=== PATIENT | female | born 1975 | race American Indian/Alaskan Native ===

== ENCOUNTER 2019-09-30 20:42 | Emergency (ER) | payer BC, MEDICAID ==
[2019-09-30 21:24] VITALS: BP 102/57
[2019-09-30] MEDS ORDERED: ACETAMINOPHEN 500 MG TAB PO ONE (21:24)
--- NOTE | 2019-09-30 21:53 | XRay Report ---
CHEST 2 VIEWS INDICATION / CLINICAL INFORMATION: Shortness of breath and cough for 2 days. COMPARISON: None available. FINDINGS: SUPPORT DEVICES: None. HEART / MEDIASTINUM: The heart size and pulmonary vasculature are normal. LUNGS / PLEURA: There is mild patchy parenchymal disease in the right lower lung medially on the PA v iew, predominantly in the middle lobe on the lateral view. There may be minimal subsegmental parenchy mal disease in the left lower lung. No pleural effusion. No pneumothorax. ADDITIONAL FINDINGS: No significant additional findings. IMPRESSION: Mild patchy pneumonia, predominantly in the right middle lobe. The appearance is nonspeci fic and could be related to bacterial pneumonia. Atypical causes of pneumonia, including viral pneumo clara, could have this appearance. Signer Name: Moses Ansari MD Signed: 09/30/2019 9:49 PM Workstation Name: [id number]
[2019-10-01] MEDS ORDERED: cefTRIAXone/NS 1 GM/50 ML 1 GM/50 ML BAG IV ONE (00:08)
[2019-10-01] MEDS ORDERED: AZITHROMYCIN 250 MG TAB PO ONE (00:08)
[2019-10-01 00:28] LABS: Basophils % (Auto) 0.2 % (0.0-1.8); Eosinophils % (Auto) 0.1 % (0.0-4.3); Hematocrit 34.2 % (30.3-42.9); Hemoglobin 11.2 gm/dl (10.1-14.3); Lymphocytes # (Auto) 1.1 K/mm3 (1.2-5.4); Lymphocytes % (Auto) 20.5 % (13.4-35.0); Mean Corpuscular HGB Conc 33 % (30-34); Mean Corpuscular Volume 79 fl (79-97); Monocytes # (Auto) 0.5 K/mm3 (0.0-0.8); Monocytes % (Auto) 8.8 % (0.0-7.3); Platelet Count 194 K/mm3 (140-440); Red Blood Count 4.35 M/mm3 (3.65-5.03); Red Cell Distribution Width 17.7 % (13.2-15.2)
[2019-10-01 00:45] LABS: Alanine Aminotransferase 7 units/L (7-56); BUN/Creatinine Ratio 8; Blood Urea Nitrogen 8 mg/dL (7-17)
[2019-10-01 01:16] LABS: Albumin 4.1 g/dL (3.9-5); Calcium 9.1 mg/dL (8.4-10.2)
--- NOTE | 2019-10-01 02:32 | Emergency Department Report ---
- General Chief Complaint: Dyspnea/Respdistress Stated Complaint: SOB Source: patient Mode of arrival: Ambulatory Limitations: No Limitations - History of Present Illness Initial Comments: Patient is a 44-year-old -[place] female with no past medical history who presents to the ED with complaint of acute onset persistent nasal and sinus congestion, frontal sinus pressure, persistent dry cough for the last 1 week, worse in the last 2 days with intermittent fever of up to 102 F, diffuse body aches and pains. Patient states that she has been taking [id number] medications with no relief. Patient states that prior to arrival in the ED her fever was higher and that her symptoms have worsened especially cough and shortness of breath which have been dry with no phlegm. Patient denies di zziness, syncope, chest pain, abdominal pain, nausea, vomiting, diarrhea, palpitations, dysuria, urinary frequency and urgency, sore throat, back pain, vaginal bleeding or vaginal discharge. Patient states that no one else at home is had similar symptoms. MD Complaint: fever, cough, rhinorrhea, nasal congestion, sinus pain -: Sudden, week(s) (1) Severity: severe Severity scale (0 -10): 7 Quality: sharp, aching Consistency: constant Improves With: nothing Worsens With: nothing Associated Symptoms: denies other symptoms, fever, chills, myalgias, headache, rhinorrhea, nasal congestion, cough, shortness of breath. denies: sore throat, stiff neck, chest pain, abdominal pain, nausea, vomiting, diarrhea, dysuria, rash, right sweats, weight loss, epistaxis, ear pain Treatments Prior to Arrival: none - Related Data Previous Rx's Medication Instructions Recorded Last Taken Type Acetaminophen [Tylenol] 500 mg PO Q6HR PRN #30 tablet 10/01/19 Unknown Rx Albuterol Sulfate [Proventil Hfa] 1 - 2 puff IH Q6H PRN #1 inh 10/01/19 Unknown Rx Benzonatate [Tessalon Perles] 100 mg PO Q8HR #30 capsule 10/01/19 Unknown Rx Cetirizine HCl [Zyrtec 10mg tab] 10 mg PO DAILY #30 tablet 10/01/19 Unknown Rx levoFLOXacin [Levaquin] 750 mg PO QDAY #7 tablet 10/01/19 Unknown Rx methylPREDNISolone [Medrol 4MG 4 mg PO DAILY #21 tab.ds.pk 10/01/19 Unknown Rx DOSEPAK (21 tabs)] Allergies Allergy/AdvReac Type Severity Reaction Status Date / Time No Known Allergies Allergy Unverified 09/30/19 21:19 ED Review of Systems ROS: Stated complaint: SOB Other details as noted in HPI Constitutional: chills, fever, malaise Eyes: denies: eye pain, eye discharge, vision change ENT: congestion. denies: ear pain, throat pain Respiratory: cough, shortness of breath. denies: wheezing Cardiovascular: denies: chest pain, palpitations, edema, syncope Endocrine: no symptoms reported Gastrointestinal: denies: abdominal pain, nausea, vomiting, diarrhea, hem atemesis, hematochezia Genitourinary: denies: urgency, dysuria, discharge Musculoskeletal: denies: back pain, joint swelling, arthralgia Skin: denies: rash, lesions Neurological: headache. denies: weakness, paresthesias Psychiatric: denies: anxiety, depression Hematological/Lymphatic: denies: easy bleeding, easy bruising ED Past Medical Hx - Past Medical History Previous Medical History?: No - Surgical History Past Surgical History?: Yes Additional Surgical History: Tummy tuck and breast lift - Social History Smoking Status: Never Smoker Substance Use Type: None - Medications Home Medications: Home Medications Medication Instructions Recorded Confirmed Last Taken Type Acetaminophen [Tylenol] 500 mg PO Q6HR PRN #30 tablet 10/01/19 Unknown Rx Albuterol Sulfate [Proventil Hfa] 1 - 2 puff IH Q6H PRN #1 inh 10/01/19 Unknown Rx Benzonatate [Tessalon Perles] 100 mg PO Q8HR #30 capsule 10/01/19 Unknown Rx Cetirizine HCl [Zyrtec 10mg tab] 10 mg PO DAILY #30 tablet 10/01/19 Unknown Rx levoFLOXacin [Levaquin] 750 mg PO QDAY #7 tablet 10/01/19 Unknown Rx methylPREDNISolone [Medrol 4MG 4 mg PO DAILY #21 tab.ds.pk 10/01/19 Unknown Rx DOSEPAK (21 tabs)] ED Physical Exam - General Limitations: No Limitations General appearance: alert, in no apparent distress - Head Head exam: Present: atraumatic, normocephalic, normal inspection - Eye Eye exam: Present: normal appearance, PERRL, EOMI Pupils: Present: normal accommodation - ENT ENT exam: Present: normal orophraynx, mucous membranes moist, TM's normal bilaterally, normal external ear exam, other (Grossly congested nasal passages) - Neck Neck exam: Present: normal inspection, full ROM. Absent: tenderness - Respiratory Respiratory exam: Present: normal lung sounds bilaterally. Absent: respiratory distress, wheezes, rales, rhonchi, chest wall tenderness, accessory muscle use, decreased breath sounds, prolonged expiratory - Cardiovascular Cardiovascular Exam: Present: regular rate, normal rhythm, normal heart sounds. Absent: systolic murmur, diastolic murmur, rubs, gallop - GI/Abdominal GI/Abdominal exam: Present: soft, normal bowel sounds. Absent: tenderness, guarding, rebound, hyperactive bowel sounds, hypoactive bowel sounds, organomegaly - Extremities Exam Extremities exam: Present: normal inspection, full ROM, normal capillary refill - Back Exam Back exam: Present: normal inspection, full ROM. Absent: tenderness, CVA tenderness (R), muscle spasm, paraspinal tenderness, vertebral tenderness - Neurological Exam Neurological exam: Present: alert, oriented X3, CN II-XII intact, normal gait, r eflexes normal - Psychiatric Psychiatric exam: Present: normal affect, normal mood - Skin Skin exam: Present: warm, dry, intact, normal color. Absent: rash ED Course Vital Signs 09/30/19 09/30/19 21:22 23:53 Temperature 102.1 F H 99.6 F Pulse Rate 92 H 84 Respiratory 20 20 Rate Blood Pressure 102/57 O2 Sat by Pulse 100 96 Oximetry ED Medical Decision Making - Lab Data Result diagrams: 10/01/19 00:15 10/01/19 00:15 - Radiology Data Radiology results: report reviewed, image reviewed Findings [facility], [place] [address] [place] [address] XRay Report Signed Patient: MEDINA PEARSON MR#: [id number] : 1975 Acct:[id number] Age/Sex: 44 / F ADM Date: 09/30/19 Loc: ED Attending Dr: Ordering Physician: KAMILLE DOUGLASS MD Date of Service: 09/30/19 Procedure(s): XR chest routine 2V Accession Number(s): [id number] cc: ED MD RAFAT Fluoro Time In Minutes: CHEST 2 VIEWS INDICATION / CLINICAL INFORMATION: Shortness of breath and cough for 2 days. COMPARISON: None available. FINDINGS: SUPPORT DEVICES: None. HEART / MEDIASTINUM: The heart size and pulmonary vasculature are normal. LUNGS / PLEURA: There is mild patchy parenchymal disease in the right lower lung medially on the PA view, predominantly in the middle lobe on the lateral view. There may be minimal subsegmental parenchymal disease in the left lower lung. No pleural effusion. No pn eumothorax. ADDITIONAL FINDINGS: No significant additional findings. IMPRESSION: Mild patchy pneumonia, predominantly in the right middle lobe. The appearance is nonspecific and could be related to bacterial pneumonia. Atypical causes of pneumonia, including viral pneumonia, could have this appearance. Signer Name: Moses Ansari MD Signed: 09/30/2019 9:49 PM Workstation Name: [id number] Transcribed By: RT Dictated By: Moses Ansari MD Electronically Authenticated By: Moses Ansari MD Signed Date/Time: 09/30/192148 DD/ 46 TD/TT: - Medical Decision Making This is a 44-year-old female with no past medical history presented to the ED with complaint of acute onset persistent nasal and sinus congestion, dry cough, diffuse body aches and pains, intermittent fever of up to 102 F, lack of appetite, chills, headache and generalized weakness. In the ED, patient is alert and oriented x3 and is not in distress but febrile in triage with a fever 102.1 F. Patient was treated in the ED for fever with Tylenol, and lab test results were reviewed and showed mild hyponatremia 136 mmol/L and hyperglycemia 118 mg/dL. The rest of the lab test results are unremarkable. Chest x-ray showed mild patchy pneumonia, predominantly in the right middle lobe. The appearance is nonspecific and could be related to bacterial pneumonia. Atypical causes of pneumonia, including viral pneumonia, could have this appearance. Patient was treated in the ED with azithromycin 500 mg p.o. x1 and Rocephin 1 g IV x1, and also given LR 1 L IV bolus x1. On reevaluation, patient's pain improved significantly and patient's fever resolved with medications. Patient was discharged home on antibiotics and antipyretics and was advised to follow-up with her primary care physician in 5 to 7 days for reevaluation or return to the ED immediately if symptoms get worse. Patient was also advised to strictly self quarantine for 14 days as a precaution for possible COVID-19 viral infection. Patient was advised to return to the ED immediately if symptoms get worse. - Differential Diagnosis Pneumonia; URI; Bronchitis; Sinusitis; Covid-19 Critical care attestation.: If time is entered above; I have spent that time in minutes in the direct care of this critically ill patient, excluding procedure time. ED Disposition Clinical Impression: Shortness of breath, Acute upper respiratory infection, Fever and chills Community acquired pneumonia Qualifiers: Laterality: right Lung location: middle lobe of lung Qualified Code(s): J18.9 - Pneumonia, unspecified organism Disposition: TO HOME OR SELFCARE Is pt being admited?: No Does the pt Need Aspirin: No Condition: Stable Instructions: Community-acquired Pneumonia (ED), Dyspnea (ED), Fever in Adults (ED), Upper Respiratory Infection (ED) Additional Instructions: Your lab test results are unremarkable. The chest x-ray shows right middle lobe pneumonia. Therefore take antibiotics as advised, drink plenty of fluids and follow-up with your primary care physician in 5 to 7 days for reevaluation. Return to the ED immediately if symptoms get worse. Prescriptions: Acetaminophen [Tylenol] 500 mg PO Q6HR PRN #30 tablet PRN Reason: fever levoFLOXacin [Levaquin] 750 mg PO QDAY #7 tablet methylPREDNISolone [Medrol 4MG DOSEPAK (21 tabs)] 4 mg PO DAILY #21 tab.ds.pk Albuterol Sulfate [Proventil Hfa] 1 - 2 puff IH Q6H PRN #1 inh PRN Reason: Dyspnea Benzonatate [Tessalon Perles] 100 mg PO Q8HR #30 capsule Cetirizine HCl [Zyrtec 10mg tab] 10 mg PO DAILY #30 tablet Referrals: TAWANDA GARVIN MD [Primary Care Provider] - 3-5 Days Forms: Work/School Release Form(ED) Time of Disposition: 02:34 Print Language: KHMER
== END 2019-10-01 02:53 | disposition home or self-care (01) ==
LOC: ED 20:42
DX: J18.8 Other pneumonia, unspecified organism (principal); J06.9 Acute upper respiratory infection, unspecified; Z79.899 Other long term (current) drug therapy; Z98.890 Other specified postprocedural states
CPT/HCPCS: 36415; 71046; 80053; 85025; 96365; 99284; J0696